=== PATIENT | male | born 1975 | race Two or more races ===

== ENCOUNTER 2020-09-22 22:46 | Observation (INO) ==
[2020-09-22] MEDS ORDERED: HYDROmorphone 2 MG/1 ML VIAL IV STA (22:59)
[2020-09-22] MEDS ORDERED: ONDANSETRON 4 MG/2 ML VIAL IV ONE (22:59)
[2020-09-22] MEDS ORDERED: MAGNESIUM HYDROXIDE SUSP 30 ML UDCUP PO PRN (23:26)
[2020-09-22] MEDS: DEXTROSE 5% NACL 0.45% 1,000 ML IV SCH (23:48)
[2020-09-22 23:49] LABS: Basophils # 0.1 10*3/uL (0.0-0.2); Eosinophils # 0.1 10*3/uL (0.0-0.87); Eosinophils % 1.3 % (0.00-10.9); Hematocrit 44.4 VOL% (42.0-52.0); Hemoglobin 14.9 GM/DL (14.0-18.0); Immature Granulocytes % 0.4 %; Immature Granulocytes Absolute 0.04 #; Lymphocytes # 3.5 10*3/uL (1.4-4.0); Lymphocytes % 39.4 % (21.2-54.2); Mean Corpuscular HGB Conc 33.6 GM/DL (32-36); Mean Corpuscular Volume 78.4 FL (87-102); Mean Platelet Volume 9.8 FL (9.6-12.0); Monocytes % 5.6 % (1.7-12.7); Neutrophils % 52.3 % (38.7-73.9); Platelet Count 240 T/CUMM (130-400); Red Blood Count 5.66 MC/CUMM (3.8-5.5); Red Cell Distribution Width 13.2 % (9.3-17.3); White Blood Count 8.9 T/CUMM (4-12)
[2020-09-23] LABS: INR 1.1; Osmolality,Calculated 280.5 MOS/KG (273-304); PT Patient Result 11.7 SECS (9.8-11.9)
[2020-09-23] MEDS: MORPHINE 4 MG/1 ML VIAL IV PRN ×2 (04:21→09:42)
[2020-09-23] MEDS: DEXTROSE 5% NACL 0.45% 1,000 ML IV SCH (09:55)
[2020-09-23] MEDS ORDERED: MIDAZOLAM 2 MG/2 ML VIAL ONE (13:50)
[2020-09-23] MEDS ORDERED: propofoL 200 MG/20 ML VIAL IV ONE (13:50)
[2020-09-23] MEDS ORDERED: LIDOCAINE 2% 5 ML VIAL ONE (13:50)
[2020-09-23] MEDS ORDERED: fentaNYL 100 MCG/2 ML VIAL ONE (13:50)
[2020-09-23] MEDS ORDERED: KETOROLAC 30 MG/1 ML VIAL ONE (13:55)
[2020-09-23] MEDS ORDERED: ONDANSETRON 4 MG/2 ML VIAL ONE (13:56)
[2020-09-23] MEDS ORDERED: ACETAMINOPHEN 1,000 MG/100 ML VIAL IV ONE (14:28)
[2020-09-23] MEDS ORDERED: SEVOFLURANE 1 UNIT/15 MINUTE INH ONE (14:28)
[2020-09-23] MEDS ORDERED: DEXAMETHASONE 4 MG/1 ML VIAL ONE (14:33)
[2020-09-23] MEDS ORDERED: diphenhydrAMINE CAP 25 MG CAPSULE PO PRN (14:50)
[2020-09-24 11:55] VITALS: BP 142/76
== END 2020-09-24 16:44 | disposition home or self-care (01) ==
LOC: N.EDINP 22:46 → N.ED 22:46 → N.3E 09-23 00:05
PROVIDERS: ADMIT Orthopaedic Surgery; ATTEND Orthopaedic Surgery